=== PATIENT | male | born 1950 | race Caucasian/White ===

== ENCOUNTER 2018-10-22 13:29 | Emergency (ER) | payer BC, MEDICARE ==
[~2018-10-22] VITALS: Ht 180.3 cm; Wt 123.4 kg
[~2018-10-22 13:29] MED LIST: METFORMIN PO; VICODIN ES TAB1 EACH PO; Z.0.LISINOPRIL20 MG PO; [UNRECOGNIZED DRUG - OTHER] PO
--- OUTSIDE RECORDS SUMMARY | 2018-10-22 13:33 | XMS REPORT | Summary of Care ---
Author Author [facility]inald Fowler, [facility] Phone Unavailable Care Team Providers Care Foreign Car Mechanic Name Role Phone JUSTICE SOTO M.D. Unavailable Unavailable JUSTICE ELKINS MD Unavailable Unavailable Unavailable Unavailable Functional Status Name Dates Details Functional status health issues are not documented Status: Name Dates Details Cognitive status health issues are not documented Status: Problems Name Dates Details Need for 23-polyvalent pneumococcal polysaccharide vaccine (V03.82, Z23) Status: Active Iron deficiency anemia (280.9, D50.9) Status: Active Fatigue (780.79, R53.83) Status: Active Diabetes mellitus (250.00, E11.9) Status: Active Essential (primary) hypertension (401.9, I10) Status: Active Other hyperlipidemia (272.4, E78.49) Status: Active Vitamin D deficiency (268.9, E55.9) Status: Active Medications Name Dates Details MetFORMIN HCl - 1000 MG Oral Tablet Take one (1) tablet(s) by mouth twice a day with meals. Quantity: 180 CHARLES [email or web address] * Start : 22-Dec-2013 Active Lantus SoloStar 100 UNIT/ML Subcutaneous Solution Pen-injector INJECT 48 TO 50 UNITS SUBCUTANEOUSLY AT NIGHT. MAY SELF TITRATE UP TO 60 UNITS A DAY. * Quantity: 2 Refills: 3 CHARLES JUSTICE Mora * Start : 22-Dec-2013 Active 5 x 3 ML Pen Vitamin B-12 1000 MCG Oral Tablet TAKE 1 TABLET DAILY DIRECTED. * Quantity: 100 Refills: 4 CHARLES JUSTICE Mora * Start : 22-Dec-2013 Active Vitamin D3 2000 UNIT Oral Capsule 1 a day Mon to Th; 2 a day on Fri, Sat & Sun ( or 10 caps a week)Start 08-04-14 * Quantity: 100 Refills: 4 CHARLES Ruben.JUSTICE [place] * Start : 22-Dec-2013 Active Lisinopril 30 MG Oral Tablet TAKE ONE (1) TABLET(S) BY MOUTH ONCE A DAY. * Quantity: 90 Refills: 0 JUSTICE SOTO M.D. * Start : 10-Jul-2018 Active Pravastatin Sodium 40 MG Oral Tablet TAKE ONE (1) TABLET(S) BY MOUTH AT NIGHT. * Quantity: 90 Refills: 1 JUSTICE SOTO M.D. * Start : 03-Aug-2014 Active Viagra 50 MG Oral Tablet TAKE 1 TABLET DAILY 1 HOUR BEFORE NEEDED * Quantity: 8 Refills: 2 JUSTICE SOTO M.D. * Start : 19-Jul-2015 Active Contour Next Test In Vitro Strip Check BG 4x a day * Quantity: 4 Refills: 3 JUSTICE SOTO M.D. * Start : 28-Jan-2017 Active 100 Strip Box [place] Microlet Lancets Check BG 4 times a day * Quantity: 4 Refills: 3 JUSTICE SOTO M.D. * Start : 28-Jan-2017 Active 100 Unit Package HumaLOG KwikPen 100 UNIT/ML Subcutaneous Solution Pen-injector 14 breakfast; 14 lunch; 18 supper; 10 units snacks; CF 35 MDD:70 * Quantity: 2 Refills: 3 JUSTICE SOTO M.D. * Start : 10-Sep-2017 Active 5 x 3 ML Pen H-E-B inControl Pen [place] 31G X 6 MM Use 4 times a day * Quantity: 2 Refills: 2 JUSTICE SOTO M.D. * Start : 30-Oct-2017 Active 100 Unit Box Contour Next Monitor w/Device Kit check bs 4x daily * Quantity: 1 Refills: 0 JUSTICE SOTO M.D. Start : 26-Aug-2018 Active Allergies and Adverse Reactions Name Dates Details No Known Drug Allergies (Allergy) Status: Active Past Medical History Name Dates Details History of Nephrolithiasis (V13.01) Status: Resolved Procedures Procedure Dates Details History of Renal Lithotripsy Completed History of Back Surgery Completed History of Mohs surgery Completed Immunization Name Dates Details Influenza on: 18-Jul-2015 Pneumovax 23 25 MCG/0.5ML Injection Injectable Lot #: [id number] on: 19-Jul-2015 Family History Name Dates Details Family history of Coronary Artery Disease (V17.49) Comments: Family History Status: Active Family history of Diabetes Mellitus (V18.0) Comments: Family History Status: Active Name Dates Details Family history of Diabetes Mellitus (V18.0) Status: Active Social History Name Dates Details - Status: Name Dates Details Never smoker Vital Signs Date Test Result Details :59 BP Systolic 138 mm[Hg] Status: BP Diastolic 80 mm[Hg] Status: :38 BP Systolic 142 mm[Hg] Status: Comments: Location: E; Position: Sitting BP Diastolic 91 mm[Hg] Status: Comments: Location: [facility]; Position: Sitting Height 72 in Status: Weight 277.0625 lb Status: Body Mass Index Calculated 37.58 kg/m2 Status: Body Surface Area Calculated 2.45 m2 Status: Heart Rate 90 /min Status: Results Date Description Value Details :39 [O] Hemoglobin A1c (in office) HEMOGLOBIN A1c 9.3 :39 Glucose (Point of Care In Office) Glucose POC [facility] 131 Plan of Care Name Dates Details Planned Observations Planned Goals not documented Planned Encounters Appointment; JUSTICE SOTO M.D. On: 09-Dec-2018 12:00 Interventions Provided Medication Changes* Contour Next Monitor w/Device Kit - Renew * HumaLOG KwikPen 100 UNIT/ML Subcutaneous Solution Pen-injector - Renew * Lantus SoloStar 100 UNIT/ML Subcutaneous Solution Pen-injector - Renew * MetFORMIN HCl - 1000 MG Oral Tablet - Renew * Pravastatin Sodium 40 MG Oral Tablet - Renew Labs/Procedures/Imaging* [O] Hemoglobin A1c (in office); Done: 01 Oct 2018 * Glucose (Point of Care In Office); Done: 01 Oct 2018 Discussion/Summary* A1c even higher. He declines additional agent. He promises to do better with diet and meds. Continue lantus 50 units nightly and take Humalog and 10 for snacks. Use CF. Continue metformin. Discussed the importance of DM control and its metabolic and vascular complications. Stressed the importance of consistent MNT and med compliance in DM control * Advised to do SMBG. * Take insulin timely * Exercise encouraged * Take medicine. Discussed the importance of BP control. * Take medicine. MNT reiterated. Discussed the importance of Lipid control. * Take Vit D * Spent 24/30 mins counseling Instructions Name Dates Details Instructions not documented Encounters Appointment; JUSTICE SOTO M.D. Encounter Diagnosis: Problem not documented On: 23-Oct-2016 14:45 Appointment; JUSTICE SOTO M.D. Encounter Diagnosis: Problem not documented On: 21-Jan-2017 14:45 Appointment; JUSTICE SOTO M.D. Encounter Diagnosis: Problem not documented On: 26-Apr-2017 8:30 Appointment; JUSTICE SOTO M.D. Encounter Diagnosis: Problem not documented On: 10-Sep-2017 8:00 Appointment; JUSTICE SOTO M.D. Encounter Diagnosis: Problem not documented On: 14-Nov-2017 9:00 Appointment; JUSTICE SOTO M.D. Encounter Diagnosis: Problem not documented On: 14-Feb-2018 13:00 Appointment; JUSTICE SOTO M.D. Encounter Diagnosis: Problem not documented On: 19-May-2018 9:00 Appointment; JUSTICE SOTO M.D. Encounter Diagnosis: Problem not documented On: 21-Jul-2018 13:30 Appointment; JUSTICE SOTO M.D. Encounter Diagnosis: Problem not documented On: 01-Oct-2018 15:15
[2018-10-22] MEDS ORDERED: DEXAMETHASONE SOD PHOS 10 MG/1 ML VIAL INJ ONE (13:45)
[2018-10-22] MEDS ORDERED: TRAMADOL HCL 50 MG TAB PO NR (14:00)
--- NOTE | 2018-10-22 17:45 | Diagnostic Imaging Report ---
HIP LEFT 2-3 VW (+/- PELVIS), SP LUMBAR, COMPLETE MIN 4VW Comparison: None Clinical history: Pain of the left hip, lower back Findings: Left hip and pelvis: Mild bilateral hip degenerative changes. No acute fracture or dislocation. Lumbar spine: Slight rightward curvature of the lower lumbar spine. Multilevel degenerative endplate changes and facet arthrosis, worse at L4-S1, asymmetric to the left. Minimal anterior wedging at L1, L2 and disc space narrowing at L4-5. Impression: No acute bony abnormality Signed by: Dr Marisa Jasmine MD on 10/22/2018 5:42 PM
== END 2018-10-22 17:53 | disposition home or self-care (01) ==
LOC: ER 13:29
DX: M25.552 Pain in left hip (principal); E11.9 Type 2 diabetes mellitus without complications
CPT/HCPCS: 72110; 73502; 99283; J1100

== ENCOUNTER 2018-10-30 12:50 | Outpatient (RCR) | payer MEDICARE | END 2018-11-06 | LOC: PT 12:50 | PROVIDERS: ATTEND Orthopaedic Surgery | DX: M47.816 Spondylosis without myelopathy or radiculopathy, lumbar region (principal); M46.1 Sacroiliitis, not elsewhere classified; M54.5 Low back pain; M62.81 Muscle weakness (generalized) ==

== ENCOUNTER 2018-11-26 09:00 | Outpatient (RCR) | payer MEDICARE | END 2018-12-07 | LOC: PT 09:00 | PROVIDERS: ATTEND Family Medicine Geriatric Medicine | DX: M54.5 Low back pain (principal); M47.896 Other spondylosis, lumbar region; M46.1 Sacroiliitis, not elsewhere classified | CPT/HCPCS: 93458 ==